=== PATIENT | male | born 1940 | race Caucasian/White ===

== ENCOUNTER 2017-03-27 12:54 | Inpatient (IN) | payer MEDICARE ==
[~2017-03-27] VITALS: Ht 172.7 cm; Wt 76.0 kg
[2017-03-27 15:36] LABS: BASOPHILS # (AUTO) 0.02 K/uL (0.00-0.20); BASOPHILS % (AUTO) 0.4 % (0.0-2.0); EOSINOPHILS # (AUTO) 0.04 K/uL (0.00-0.70); EOSINOPHILS % (AUTO) 0.71 % (1.0-6.0); HEMOGLOBIN 13.1 g/dL (13.5-17.5); LYMPHOCYTES # (AUTO) 0.6 K/uL (1.0-4.8); MEAN CORPUSCULAR HEMOGLOBIN 31.6 pg (26.0-34.0); MEAN CORPUSCULAR HGB CONC 33.5 G/dL (31.0-37.0); MEAN CORPUSCULAR VOLUME 94 fL (80-100); MONOCYTES # (AUTO) 0.4 K/uL (0.1-1.0); MONOCYTES % (AUTO) 7.5 % (2.0-9.0); NEUTROPHILS # (AUTO) 4.6 K/uL (1.8-7.7); NEUTROPHILS % (AUTO) 80.5 % (40.0-70.0); PLATELET COUNT (AUTO) 172 K/uL (150-450); RED BLOOD CELL COUNT(AUTO) 4.13 MIL/uL (4.50-5.90); RED CELL DISTRIBUTION WIDTH 14.8 % (11.5-14.5)
[2017-03-27 15:51] LABS: ANION GAP 5 mmol/L (8-16); CALCIUM, TOTAL 8.5 mg/dL (8.8-10.5); CARBON DIOXIDE 30 mmol/L (22-29); CHLORIDE 105 mmol/L (98-107); CREATININE 1.41 mg/dL (0.60-1.30); GLOMERULAR FILTR. RATE CALC 49 mL/min (>60); GLUCOSE,RANDOM 118 mg/dL (70-110); POTASSIUM 3.2 mmol/L (3.5-5.1); SODIUM SERUM 140 mmol/L (136-145); UREA NITROGEN, BLOOD 21 mg/dL (7-18)
[2017-03-27 16:03] LABS: ALANINE AMINOTRANSFERASE 42 U/L (12-78); ALBUMIN 3.1 g/dL (3.4-5.0); ALKALINE PHOSPHATASE 52 U/L (46-116); ASPARTATE AMINOTRANSFERASE 161 U/L (15-37); BILIRUBIN,TOTAL 0.9 mg/dL (0.1-1.0); TOTAL PROTEIN, SERUM 8.2 g/dL (6.4-8.2)
[2017-03-27 16:47] LABS: AMPHET/METH SCREEN,URINE NEGATIVE (NEGATIVE); BARBITURATE SCREEN, URINE NEGATIVE (NEGATIVE); BENZODIAZEPINES SCREEN,URINE NEGATIVE (NEGATIVE); CANNABINOID SCREEN,URINE NEGATIVE (NEGATIVE); COCAINE SCREEN,URINE NEGATIVE (NEGATIVE); METHADONE SCREEN, URINE NEGATIVE (NEGATIVE); OPIATE SCREEN,URINE NEGATIVE (NEGATIVE)
[2017-03-27 16:49] LABS: PHENCYCLIDINE SCREEN,URINE NEGATIVE (NEGATIVE)
[2017-03-27] MEDS ORDERED: SODIUM CHLORIDE 0.9% 1,000 ML IV ONE (18:00)
[2017-03-27 18:22] LABS: APPEARANCE,URINE CLEAR (CLEAR); BILIRUBIN,URINE NEGATIVE (NEGATIVE); GLUCOSE, URINE (UA) NEGATIVE (NEGATIVE); KETONES,URINE NEGATIVE (NEGATIVE); LEUKOCYTE ESTERASE ,URINE NEGATIVE (NEGATIVE); NITRATE,URINE NEGATIVE (NEGATIVE); OCCULT BLOOD,URINE LARGE (NEGATIVE); PROTEIN,URINE NEGATIVE (NEGATIVE); UROBILINOGEN,URINE 0.2 mg/dL (<=1.0)
[2017-03-27 18:50] LABS: RBC,URINE 0-2 /HPF (0-2); WBC,URINE None Seen /HPF (0-5)
[2017-03-27 18:51] LABS: BACTERIA,URINE Rare /HPF (None Seen); SQUAMOUS EPITHELIAL CELL,UR Rare /LPF (None Seen)
[2017-03-27] MEDS ORDERED: ONDANSETRON HCL 4 MG/2 ML VIAL IVP PRN ×2 (19:30→20:15)
[2017-03-27] MEDS ORDERED: 0.9% SODIUM CHLORIDE 10 ML SYRINGE IVP PRN (19:30)
[2017-03-27] MEDS ORDERED: ACETAMINOPHEN 325 MG TABLET PO PRN (19:30)
[2017-03-27] MEDS ORDERED: ALBUTEROL SULFATE 2.5 MG/0.5 ML NEB SOLUTION NEB PRN (20:15)
[2017-03-27] MEDS ORDERED: BISACODYL 10 MG RECTAL RECTAL SUPPOSITORY PR PRN (20:15)
[2017-03-27] MEDS ORDERED: MAGNESIUM HYDROXIDE SUSPENSION 30 ML UDCUP PO PRN (20:15)
[2017-03-27] MEDS ORDERED: IPRATROPIUM BROMIDE 0.5 MG/2.5 ML NEB SOLUTION NEB PRN (20:15)
[2017-03-27] MEDS: DOCUSATE SODIUM 100 MG CAPSULE PO SCH (20:51)
[2017-03-27] MEDS: HEPARIN SODIUM,PORCINE 5,000 UNITS/ML VIAL SQ SCH (20:52)
[2017-03-27 23:19] VITALS: BP 126/88
[2017-03-28] MEDS ORDERED: PNEUMOCOCCAL VACCINE POLYVALENT 0.5 ML VIAL [PPSV23] IM ONE (00:15)
[2017-03-28] MEDS ORDERED: INFLUENZA VIRUS VACCINE QVS 2017-18 (3YR+)/PF 60 MCG/0.5 ML SYRINGE IM ONE (00:15)
[2017-03-28] MEDS: SODIUM CHLORIDE 0.9% 1,000 ML IV SCH ×2 (00:45→12:17)
[2017-03-28] MEDS: LORazepam 2 MG/ML VIAL IM PRN ×3 (01:26→22:37)
[2017-03-28 05:58] LABS: BASOPHILS % (AUTO) 0.3 % (0.0-2.0); EOSINOPHILS % (AUTO) 1.7 % (1.0-6.0); HEMATOCRIT 42.4 % (41-53); HEMOGLOBIN 14.3 g/dL (13.5-17.5); LYMPHOCYTES # (AUTO) 0.8 K/uL (1.0-4.8); LYMPHOCYTES % (AUTO) 15.1 % (22.0-44.0); MEAN CORPUSCULAR HEMOGLOBIN 31.9 pg (26.0-34.0); MEAN CORPUSCULAR HGB CONC 33.7 G/dL (31.0-37.0); MEAN CORPUSCULAR VOLUME 95 fL (80-100); MONOCYTES # (AUTO) 0.4 K/uL (0.1-1.0); NEUTROPHILS # (AUTO) 3.9 K/uL (1.8-7.7); NEUTROPHILS % (AUTO) 74.9 % (40.0-70.0); PLATELET COUNT (AUTO) 192 K/uL (150-450); RED BLOOD CELL COUNT(AUTO) 4.49 MIL/uL (4.50-5.90); RED CELL DISTRIBUTION WIDTH 14.5 % (11.5-14.5)
[2017-03-28 06:27] LABS: ALANINE AMINOTRANSFERASE 98 U/L (12-78); ALBUMIN 3.2 g/dL (3.4-5.0); ALKALINE PHOSPHATASE 54 U/L (46-116); ANION GAP 6 mmol/L (8-16); ASPARTATE AMINOTRANSFERASE 207 U/L (15-37); BILIRUBIN,TOTAL 1.3 mg/dL (0.1-1.0); CALCIUM, TOTAL 8.5 mg/dL (8.8-10.5); CARBON DIOXIDE 29 mmol/L (22-29); CHLORIDE 107 mmol/L (98-107); CREATININE 1.17 mg/dL (0.60-1.30); FREE T4 (FREE THYROXINE) 0.89 ng/dL (0.76-1.46); GLOMERULAR FILTR. RATE CALC > 60 mL/min (>60); GLUCOSE,RANDOM 93 mg/dL (70-110); POTASSIUM 4.2 mmol/L (3.5-5.1); SODIUM SERUM 142 mmol/L (136-145); THYROID STIMULATING HORMONE 2.59 uIU/mL (0.36-3.74); TOTAL PROTEIN, SERUM 8.6 g/dL (6.4-8.2); UREA NITROGEN, BLOOD 14 mg/dL (7-18)
[2017-03-28 06:51] LABS: HEMOGLOBIN A1C 5.8 % (4.5-6.2)
[2017-03-28 08:10] VITALS: BP 115/74
[2017-03-28] MEDS: PANTOPRAZOLE SODIUM 40 MG DR TABLET PO SCH (09:00)
[2017-03-28] MEDS: DOCUSATE SODIUM 100 MG CAPSULE PO SCH ×2 (09:00→19:41)
[2017-03-28 11:27] VITALS: BP 100/59
[2017-03-28] MEDS: HEPARIN SODIUM,PORCINE 5,000 UNITS/ML VIAL SQ SCH ×2 (12:18→19:41)
[2017-03-28] MEDS: LORazepam 2 MG/ML VIAL IVP PRN (18:30)
[2017-03-28 20:05] VITALS: BP 133/82
[2017-03-29] MEDS: HEPARIN SODIUM,PORCINE 5,000 UNITS/ML VIAL SQ SCH ×2 (00:45→08:30)
[2017-03-29] MEDS: LORazepam 2 MG/ML VIAL IM PRN ×2 (02:50→08:34)
[2017-03-29 07:50] VITALS: BP 144/88
[2017-03-29 07:53] LABS: ALANINE AMINOTRANSFERASE 96 U/L (12-78); ALKALINE PHOSPHATASE 51 U/L (46-116); ANION GAP 8 mmol/L (8-16); ASPARTATE AMINOTRANSFERASE 154 U/L (15-37); BILIRUBIN,TOTAL 1.1 mg/dL (0.1-1.0); CALCIUM, TOTAL 8.5 mg/dL (8.8-10.5); CARBON DIOXIDE 25 mmol/L (22-29); CHLORIDE 105 mmol/L (98-107); CREATININE 0.93 mg/dL (0.60-1.30); GLOMERULAR FILTR. RATE CALC > 60 mL/min (>60); GLUCOSE,RANDOM 85 mg/dL (70-110); POTASSIUM 3.7 mmol/L (3.5-5.1); SODIUM SERUM 138 mmol/L (136-145); TOTAL PROTEIN, SERUM 8.2 g/dL (6.4-8.2); UREA NITROGEN, BLOOD 17 mg/dL (7-18)
[2017-03-29] MEDS: DOCUSATE SODIUM 100 MG CAPSULE PO SCH ×2 (08:30→21:00)
[2017-03-29] MEDS: PANTOPRAZOLE SODIUM 40 MG DR TABLET PO SCH (08:30)
[2017-03-29 11:55] VITALS: BP 118/79
[2017-03-29 15:12] VITALS: BP 134/87
[2017-03-29 19:42] VITALS: BP 106/65
[2017-03-29 23:40] VITALS: BP 96/55
[2017-03-30 04:13] VITALS: BP 126/89
[2017-03-30 07:32] VITALS: BP 124/69
[2017-03-30] MEDS: PANTOPRAZOLE SODIUM 40 MG DR TABLET PO SCH (08:59)
[2017-03-30] MEDS: HEPARIN SODIUM,PORCINE 5,000 UNITS/ML VIAL SQ SCH ×2 (08:59→20:56)
[2017-03-30] MEDS: SODIUM CHLORIDE 0.9% 1,000 ML IV SCH ×2 (08:59→21:03)
[2017-03-30] MEDS: DOCUSATE SODIUM 100 MG CAPSULE PO SCH ×2 (08:59→20:56)
[2017-03-30] MEDS: LORazepam 2 MG/ML VIAL IM PRN (09:50)
[2017-03-30 11:53] VITALS: BP 118/64
[2017-03-30 15:34] VITALS: BP 128/82
[2017-03-30] MEDS: LORazepam 2 MG/ML VIAL IVP PRN ×2 (18:09→23:24)
[2017-03-30 19:30] VITALS: BP 131/78
[2017-03-30 23:30] VITALS: BP 128/76
[2017-03-31 03:30] VITALS: BP 124/72
[2017-03-31] MEDS: LORazepam 2 MG/ML VIAL IVP PRN ×2 (08:05→20:14)
[2017-03-31 08:26] LABS: ALANINE AMINOTRANSFERASE 113 U/L (12-78); ALBUMIN 2.8 g/dL (3.4-5.0); ALKALINE PHOSPHATASE 55 U/L (46-116); ANION GAP 5 mmol/L (8-16); ASPARTATE AMINOTRANSFERASE 129 U/L (15-37); BILIRUBIN,TOTAL 0.8 mg/dL (0.1-1.0); CALCIUM, TOTAL 8.3 mg/dL (8.8-10.5); CARBON DIOXIDE 29 mmol/L (22-29); CHLORIDE 106 mmol/L (98-107); GLOMERULAR FILTR. RATE CALC > 60 mL/min (>60); GLUCOSE,RANDOM 83 mg/dL (70-110); POTASSIUM 3.7 mmol/L (3.5-5.1); SODIUM SERUM 140 mmol/L (136-145); TOTAL PROTEIN, SERUM 7.7 g/dL (6.4-8.2); UREA NITROGEN, BLOOD 18 mg/dL (7-18)
[2017-03-31 08:30] VITALS: BP 117/70
[2017-03-31] MEDS: PANTOPRAZOLE SODIUM 40 MG DR TABLET PO SCH (09:54)
[2017-03-31] MEDS: DOCUSATE SODIUM 100 MG CAPSULE PO SCH ×2 (09:54→20:09)
[2017-03-31] MEDS: HEPARIN SODIUM,PORCINE 5,000 UNITS/ML VIAL SQ SCH ×2 (09:55→20:09)
[2017-03-31 11:45] VITALS: BP 126/73
[2017-03-31] MEDS: HALOPERIDOL LACTATE 5 MG/ML VIAL IM PRN (11:57)
[2017-03-31 12:27] LABS: GLUCOMETER DEV NAME(LOC) PVLAB130; GLUCOSE,POINT OF CARE 178 MG/DL (70-110)
[2017-03-31 16:08] VITALS: BP 141/88
[2017-03-31] MEDS: SODIUM CHLORIDE 0.9% 1,000 ML IV SCH (17:50)
[2017-03-31 20:36] VITALS: BP 151/86
[2017-04-01] MEDS: SODIUM CHLORIDE 0.9% 1,000 ML IV SCH ×2 (05:36→22:09)
[2017-04-01 05:46] VITALS: BP 132/78
[2017-04-01] MEDS: LORazepam 2 MG/ML VIAL IVP PRN ×2 (06:18→20:32)
[2017-04-01 07:35] VITALS: BP 137/74
[2017-04-01] MEDS: HEPARIN SODIUM,PORCINE 5,000 UNITS/ML VIAL SQ SCH ×2 (09:17→20:32)
[2017-04-01] MEDS: HALOPERIDOL LACTATE 5 MG/ML VIAL IM PRN (09:17)
[2017-04-01] MEDS: DOCUSATE SODIUM 100 MG CAPSULE PO SCH ×2 (09:17→20:32)
[2017-04-01] MEDS: PANTOPRAZOLE SODIUM 40 MG DR TABLET PO SCH (09:17)
[2017-04-01 11:53] VITALS: BP 121/64
[2017-04-01 15:56] VITALS: BP 139/90
[2017-04-01] MEDS: ACETAMINOPHEN 325 MG TABLET PO PRN (17:37)
[2017-04-01] MEDS: LORazepam 2 MG/ML VIAL IM PRN (17:38)
[2017-04-01 19:58] VITALS: BP 135/78
[2017-04-02] MEDS: LORazepam 2 MG/ML VIAL IVP PRN (00:20)
[2017-04-02] MEDS: ACETAMINOPHEN 325 MG TABLET PO PRN (04:19)
[2017-04-02 05:25] VITALS: BP 139/84
[2017-04-02 07:47] VITALS: BP 143/96
[2017-04-02] MEDS: DOCUSATE SODIUM 100 MG CAPSULE PO SCH ×2 (09:43→21:23)
[2017-04-02] MEDS: PANTOPRAZOLE SODIUM 40 MG DR TABLET PO SCH (09:43)
[2017-04-02] MEDS: HEPARIN SODIUM,PORCINE 5,000 UNITS/ML VIAL SQ SCH ×2 (09:43→21:29)
[2017-04-02 11:48] VITALS: BP 130/89
[2017-04-02 15:23] VITALS: BP 165/96
[2017-04-02 19:51] VITALS: BP 134/85
[2017-04-02] MEDS: RisperiDONE 0.5 MG TABLET PO SCH (21:23)
[2017-04-02] MEDS: DONEPEZIL HCL 10 MG TABLET PO SCH (21:23)
[2017-04-02 23:01] VITALS: BP 152/92
[2017-04-03] MEDS: ACETAMINOPHEN 325 MG TABLET PO PRN (02:23)
[2017-04-03] MEDS: LORazepam 2 MG/ML VIAL IVP PRN ×3 (02:34→21:40)
[2017-04-03 03:39] VITALS: BP 147/89
[2017-04-03 07:22] VITALS: BP 141/77
[2017-04-03] MEDS: HEPARIN SODIUM,PORCINE 5,000 UNITS/ML VIAL SQ SCH ×2 (08:40→20:11)
[2017-04-03] MEDS: DOCUSATE SODIUM 100 MG CAPSULE PO SCH ×2 (08:40→20:12)
[2017-04-03] MEDS: RisperiDONE 0.5 MG TABLET PO SCH ×2 (08:40→20:11)
[2017-04-03] MEDS: PANTOPRAZOLE SODIUM 40 MG DR TABLET PO SCH (08:40)
[2017-04-03 11:35] VITALS: BP 111/69
[2017-04-03 15:06] VITALS: BP 127/75
[2017-04-03] MEDS: DONEPEZIL HCL 10 MG TABLET PO SCH (20:11)
[2017-04-03 20:25] VITALS: BP 102/66
[2017-04-04] MEDS: LORazepam 2 MG/ML VIAL IVP PRN (01:48)
[2017-04-04 05:18] VITALS: BP 124/88
[2017-04-04 08:08] LABS: ALANINE AMINOTRANSFERASE 138 U/L (12-78); ALBUMIN 3.1 g/dL (3.4-5.0); ALKALINE PHOSPHATASE 67 U/L (46-116); ANION GAP 5 mmol/L (8-16); ASPARTATE AMINOTRANSFERASE 71 U/L (15-37); BILIRUBIN,TOTAL 0.6 mg/dL (0.1-1.0); CALCIUM, TOTAL 8.4 mg/dL (8.8-10.5); CARBON DIOXIDE 28 mmol/L (22-29); CHLORIDE 105 mmol/L (98-107); CREATININE 1.09 mg/dL (0.60-1.30); GLOMERULAR FILTR. RATE CALC > 60 mL/min (>60); GLUCOSE,RANDOM 104 mg/dL (70-110); POTASSIUM 3.4 mmol/L (3.5-5.1); SODIUM SERUM 138 mmol/L (136-145); TOTAL PROTEIN, SERUM 8.2 g/dL (6.4-8.2); UREA NITROGEN, BLOOD 20 mg/dL (7-18)
[2017-04-04] MEDS: HEPARIN SODIUM,PORCINE 5,000 UNITS/ML VIAL SQ SCH (08:13)
[2017-04-04] MEDS: PANTOPRAZOLE SODIUM 40 MG DR TABLET PO SCH (08:13)
[2017-04-04] MEDS: RisperiDONE 0.5 MG TABLET PO SCH (08:13)
[2017-04-04] MEDS: DOCUSATE SODIUM 100 MG CAPSULE PO SCH (08:13)
[2017-04-04 08:26] VITALS: BP 138/84
[2017-04-04 11:43] VITALS: BP 128/79
[2017-04-04] MEDS ORDERED: POTASSIUM CHLORIDE 20 MEQ ER TABLET PO ONE (12:00)
[2017-04-04 15:34] VITALS: BP 119/78
== END 2017-04-04 19:10 | DRG 683 ==
LOC: EMS 12:56 → 6N 18:57
PROVIDERS: ADMIT Internal Medicine; ATTEND Internal Medicine
DX: N17.9 Acute kidney failure, unspecified (principal); R45.851 Suicidal ideations; E44.0 Moderate protein-calorie malnutrition; R73.9 Hyperglycemia, unspecified; Z68.25 Body mass index [BMI] 25.0-25.9, adult
CPT/HCPCS: 76700; 80074; 82962; 83036; 83735; 84132; 84439; 84443; 87081; 96360; 97110; 97116; 97162; 97166; 97530; 97535; 99285; G0480; J1630; J1644; J2060; J7030